=== PATIENT | female | born 1945 | race Caucasian/White ===

== ENCOUNTER 2024-12-08 03:36 | Inpatient (IN) | payer MEDICARE ==
[~2024-12-08] VITALS: Ht 157.5 cm; Wt 129.3 kg
[2024-12-08] VITALS (9 sets, daily range): BP systolic 113–173; BP diastolic 60–86; PULSE 56–76; RESP 17–20; TEMP 97.6–98.7; O2SAT 100
[2024-12-08 04:45] LABS: BASOPHILS % 0.2 % (0.0-1.0); EOSINOPHILS % 0.8 % (0.0-6.0); LYMPHOCYTES % 14.7 % (18.0-39.1); MONOCYTES % 5.5 % (4.4-11.3); NEUTROPHILS % 78.6 % (38.7-80.0); RED CELL DISTRIBUTION WIDTH 15.0 % (11.7-14.4)
[2024-12-08 05:05] LABS: EST GLOMERULAR FILTRATION RATE 89.0 ML/MIN (>=60)
[2024-12-08] MEDS: SODIUM CHLORIDE 0.9% 1000ML 1,000 ML IV SCH (06:08)
[2024-12-08] MEDS: ONDANSETRON HCL INJ 2MG/ML 2ML 2 MG/ML VIAL IV PRN (10:17)
[2024-12-08] MEDS: Morphine 4mg INJECTION 4 MG/ML INJ IV PRN (10:18)
[2024-12-08] MEDS ORDERED: GEMTESA75 MG PO (12:47)
[2024-12-08] MEDS ORDERED: LUNESTA2 MG PO (12:47)
[2024-12-08] MEDS ORDERED: IBUPROFEN200 MG PO (12:47)
[2024-12-08] MEDS ORDERED: ACIDOPHILUS1 EAC1 PO (12:47)
[2024-12-08] MEDS ORDERED: NEURONTIN300 MG PO (12:47)
[2024-12-08] MEDS ORDERED: LEVOTHYROXINE75 MC1 PO (12:47)
[2024-12-08] MEDS ORDERED: SIMETHICONE80 MG PO (12:47)
[2024-12-08] MEDS ORDERED: LASIX20 MG PO (12:47)
[2024-12-08] MEDS ORDERED: LOPERAMIDE2 MG PO (12:47)
[2024-12-08] MEDS ORDERED: SIMETHICONE 80 MG CHEW PO PRN (16:45)
[2024-12-08] MEDS: NYSTATIN 15 GM POWDER UD BTL TOP SCH (17:00)
[2024-12-08] MEDS: OXYBUTYNIN CHLORIDE 5 MG TAB PO SCH (17:26)
[2024-12-08] MEDS: METOPROLOL TARTRATE 25 MG TAB PO SCH (17:27)
[2024-12-08] MEDS: GABAPENTIN 300 MG CAP PO SCH (21:39)
[2024-12-08] MEDS: MELATONIN 5 MG TABLET PO SCH (21:39)
[2024-12-09 03:15] VITALS: BP 128/57; PULSE 59; RESP 18; TEMP 97.4; O2SAT 97
[2024-12-09 06:07] LABS: BASOPHILS % 0.3 % (0.0-1.0); EOSINOPHILS % 2.3 % (0.0-6.0); LYMPHOCYTES % 36.2 % (18.0-39.1); MONOCYTES % 8.0 % (4.4-11.3); NEUTROPHILS % 52.9 % (38.7-80.0); RED CELL DISTRIBUTION WIDTH 14.8 % (11.7-14.4)
[2024-12-09] MEDS: LEVOTHYROXINE SODIUM 75 MCG TAB PO SCH (06:34)
[2024-12-09 06:36] LABS: EST GLOMERULAR FILTRATION RATE 91.0 ML/MIN (>=60)
[2024-12-09 08:00] VITALS: BP 139/64; PULSE 55; RESP 17; TEMP 98.5; O2SAT 100
[2024-12-09 08:30] VITALS: BP 139/64; PULSE 55; RESP 18; TEMP 98.5; O2SAT 100
[2024-12-09] MEDS: POTASSIUM CHLORIDE 10MEQ EA PO SCH (09:14)
[2024-12-09] MEDS: PANTOPRAZOLE SODIUM 20 MG TABLET.DR PO SCH (09:14)
[2024-12-09] MEDS: FUROSEMIDE 20 MG TAB PO SCH (09:14)
[2024-12-09] MEDS: LACTOBACILLUS ACIDOPHILUS CAPSULE PO SCH (09:16)
[2024-12-09 12:00] VITALS: BP 142/53; PULSE 61; RESP 20; TEMP 98.5; O2SAT 100
[2024-12-09] MEDS: LIDOCAINE 4% PATCH TP SCH (14:50)
[2024-12-09 16:00] VITALS: BP 139/51; PULSE 54; RESP 18; TEMP 99.5; O2SAT 100
[2024-12-09 21:00] VITALS: BP 139/51; PULSE 63; RESP 18; TEMP 98.8; O2SAT 95
[2024-12-10] VITALS (7 sets, daily range): BP systolic 131–168; BP diastolic 62–80; PULSE 55–61; RESP 17–18; TEMP 97.9–98.4; O2SAT 99–100
[2024-12-11] VITALS (8 sets, daily range): BP systolic 127–167; BP diastolic 52–86; PULSE 60–81; RESP 18; TEMP 97.8–98.4; O2SAT 98–100
[2024-12-11 05:56] LABS: BASOPHILS % 0.2 % (0.0-1.0); EOSINOPHILS % 3.1 % (0.0-6.0); LYMPHOCYTES % 41.3 % (18.0-39.1); MONOCYTES % 8.6 % (4.4-11.3); NEUTROPHILS % 46.6 % (38.7-80.0); RED CELL DISTRIBUTION WIDTH 14.8 % (11.7-14.4)
[2024-12-11 06:31] LABS: EST GLOMERULAR FILTRATION RATE 89.0 ML/MIN (>=60)
[2024-12-11] MEDS ORDERED: FENTANYL CITRATE/PF 100MCG/2 ML INJ ONE (07:12)
[2024-12-11] MEDS ORDERED: ACETAMINOPHEN 1000 MG/100 ML 100 ML IV ONE (07:12)
[2024-12-11] MEDS ORDERED: PROPOFOL IV EMULSION 10 MG/ML 20 ML VIAL ONE ×2 (07:12→07:53)
[2024-12-11] MEDS ORDERED: SEVOFLURANE INHAL SOLN 250 ML PEN BTL ONE (07:12)
[2024-12-11] MEDS ORDERED: LIDOCAINE HCL 2% LOCAL INJ 5 ML SDV VIAL INJ ONE (07:12)
[2024-12-11] MEDS ORDERED: ROCURONIUM BROMIDE 1 ML IV ONE (08:06)
[2024-12-11] MEDS ORDERED: SODIUM CHLORIDE 0.9% 0 ML ONE (08:49)
[2024-12-11] MEDS ORDERED: SUGAMMADEX SODIUM 200 MG/2 ML VIAL IV ONE (09:12)
[2024-12-12] VITALS (10 sets, daily range): BP systolic 122–156; BP diastolic 51–75; PULSE 53–66; RESP 18–21; TEMP 97.9–99.3; O2SAT 98–100
[2024-12-12] MEDS: DOCUSATE SODIUM 100 MG CAP PO PRN (05:34)
[2024-12-13] MEDS: BISACODYL 10 MG SUPP PR ONE (00:37)
[2024-12-13 03:40] VITALS: BP 149/60; PULSE 66; RESP 20; TEMP 98.4; O2SAT 100
[2024-12-13 07:40] VITALS: PULSE 58; RESP 18; O2SAT 97
[2024-12-13 08:00] VITALS: BP 132/50; PULSE 72; RESP 18; TEMP 98.5; O2SAT 99
[2024-12-13 12:00] VITALS: BP 166/61; PULSE 64; RESP 20; TEMP 98.8; O2SAT 98
[2024-12-13 13:41] VITALS: PULSE 56; RESP 18; O2SAT 96
[2024-12-13 20:00] VITALS: BP 138/50; PULSE 55; RESP 20; TEMP 98.8; O2SAT 100
[2024-12-14] VITALS (9 sets, daily range): BP systolic 133–167; BP diastolic 43–74; PULSE 57–63; RESP 18–20; TEMP 98.1–98.8; O2SAT 95–100
[2024-12-15] VITALS (9 sets, daily range): BP systolic 110–161; BP diastolic 42–74; PULSE 53–89; RESP 18–20; TEMP 97.8–98.5; O2SAT 96–100
[2024-12-15] MEDS: IBUPROFEN 600 MG TAB PO PRN (09:01)
[2024-12-16] VITALS (7 sets, daily range): BP systolic 124–144; BP diastolic 51–75; PULSE 56–78; RESP 17–18; TEMP 97.2–97.7; O2SAT 94–99
[2024-12-17] VITALS (10 sets, daily range): BP systolic 101–147; BP diastolic 44–76; PULSE 50–84; RESP 17–20; TEMP 97.6–98.8; O2SAT 94–99
[2024-12-17 06:34] LABS: BASOPHILS % 0.4 % (0.0-1.0); EOSINOPHILS % 3.3 % (0.0-6.0); LYMPHOCYTES % 35.9 % (18.0-39.1); MONOCYTES % 8.7 % (4.4-11.3); NEUTROPHILS % 51.5 % (38.7-80.0); RED CELL DISTRIBUTION WIDTH 14.8 % (11.7-14.4)
[2024-12-17 07:00] LABS: EST GLOMERULAR FILTRATION RATE 87.0 ML/MIN (>=60)
[2024-12-18] VITALS (11 sets, daily range): BP systolic 134–155; BP diastolic 52–63; PULSE 51–98; RESP 16–20; TEMP 97.3–98.7; O2SAT 92–100
[2024-12-19] VITALS (12 sets, daily range): BP systolic 108–159; BP diastolic 55–78; PULSE 53–81; RESP 18; TEMP 97.4–98.6; O2SAT 96–100
[2024-12-20] VITALS (9 sets, daily range): BP systolic 131–148; BP diastolic 52–111; PULSE 54–76; RESP 16–20; TEMP 97.3–97.9; O2SAT 97–100
[2024-12-20] MEDS: TRAZODONE HCL 50 MG TAB PO PRN (22:28)
[2024-12-21] VITALS: BP 137/61; PULSE 59; RESP 16; TEMP 97.5; O2SAT 99
[2024-12-21 05:42] VITALS: BP 135/68; PULSE 56; RESP 20; TEMP 97; O2SAT 99
[2024-12-21 06:59] VITALS: PULSE 82; RESP 20; O2SAT 98
[2024-12-21 10:04] VITALS: BP 148/44; PULSE 58; RESP 18; TEMP 97.7; O2SAT 97
== END 2024-12-21 13:00 | DRG 511 ==
LOC: ER 03:38 → ERHOLD 04:24 → MED/SURG3 08:45
PROVIDERS: ADMIT Internal Medicine; ATTEND Internal Medicine
PROC: 0PSL04Z Reposition Left Ulna with Internal Fixation Device, Open Approach (ICD-10-PCS; principal; 2024-12-11 08:11)
DX: S52.002A Unspecified fracture of upper end of left ulna, initial encounter for closed fracture (principal); Z68.43 Body mass index [BMI] 50.0-59.9, adult; R06.02 Shortness of breath; K21.9 Gastro-esophageal reflux disease without esophagitis; G47.00 Insomnia, unspecified; E03.9 Hypothyroidism, unspecified; N32.81 Overactive bladder; R74.8 Abnormal levels of other serum enzymes; D64.9 Anemia, unspecified; D72.819 Decreased white blood cell count, unspecified; E66.01 Morbid (severe) obesity due to excess calories; R53.81 Other malaise; E11.40 Type 2 diabetes mellitus with diabetic neuropathy, unspecified; R60.0 Localized edema; I11.9 Hypertensive heart disease without heart failure; Z79.890 Hormone replacement therapy; Z88.5 Allergy status to narcotic agent; Z98.84 Bariatric surgery status; M19.09 Primary osteoarthritis, other specified site; X58.XXXA Exposure to other specified factors, initial encounter; Y92.002 Bathroom of unspecified non-institutional (private) residence as the place of occurrence of the external cause
CPT/HCPCS: 36415; 76000; 80048; 80053; 85025; 94799; 99252; 99284; C1713; C1769; J0690; J2003; J2270; J2405; J7030; J7050